=== PATIENT | male | born 1995 | race Caucasian/White ===

== ENCOUNTER 2017-10-10 14:11 | Emergency (ER) | payer BC ==
[~2017-10-10] VITALS: Ht 172.7 cm; Wt 128.6 kg
[2017-10-10 15:16] LABS: HEMATOCRIT 47.5 % (38.0-50.0); HEMOGLOBIN 15.7 G/DL (12.5-16.6); MCH 28.3 PG (29.0-34.0); MCHC 33.1 G/DL (30.0-36.0); MCV 85.6 FL (86-99); PLATELET COUNT 405 K/uL (156-360); RBC DIS.WIDTH-SD 40.5 % (39-53); RED BLOOD COUNT 5.55 M/uL (4.00-5.50); WHITE BLOOD COUNT 13.9 K/uL (4.1-10.2)
[2017-10-10 15:28] LABS: CHLORIDE 105 mEq/L (99-109); POTASSIUM 4.4 mEq/L (3.7-5.4); SODIUM 140 mEq/L (136-147)
[2017-10-10 15:30] LABS: GLUCOSE 116 mg/dL (70-99)
[2017-10-10 15:34] LABS: CREATININE 1.2 mg/dL (0.6-1.3); GFR ESTIMATE (CALCULATED) > 59 mL/min/ (58.99-99999)
[2017-10-10 15:35] LABS: UREA NITROGEN (BUN) 14 mg/dL (9-23)
[2017-10-10] MEDS ORDERED: TESSALON PERLE100 MG PO (17:15)
[2017-10-10] MEDS ORDERED: ROBITUSSIN100 MG/5 M PO (17:15)
[2017-10-10 17:33] VITALS: BP 138/100
== END 2017-10-10 17:33 | disposition home or self-care (01) ==
LOC: EME 14:11
DX: J06.9 Acute upper respiratory infection, unspecified (principal); J45.909 Unspecified asthma, uncomplicated
CPT/HCPCS: 71046; 80048; 85027; 87651 90; 94640; 99281; 99283